=== PATIENT | female | born 1945 | race Hispanic/Latino ===

== ENCOUNTER 2016-07-21 09:49 | Emergency (ER) | payer OTHER ==
[~2016-07-21] VITALS: Ht 162.6 cm; Wt 72.6 kg
[2016-07-21] MEDS ORDERED: NOVOLOG MI100 UNIT/2 SC (12:06)
--- NOTE | 2016-07-21 12:50 | ED UPPER/LOWER EXTREMITY COMPL ---
History of Present Illness General Chief Complaint: General Adult Stated Complaint: PINS AND NEEDLES IN UPPER R BACK AREA Source: patient, family Exam Limitations: no limitations Allergies Coded Allergies: penicillin G (Severe, ANAPHYLAXIS 07/21/16) Uncoded Allergies: EGGS (UNKNOWN 07/21/16) Triage Note: 71 YO FEMALE TO TRIAGE C/O "PINS AND NEEDLES" TO UPPER R SIDE OF BACK AND R ARM. STATES WHEN SHE STRETCHES OR MOVES HER ARM THE FEELING GOES AWAY. DENIES CHEST PAIN. STATES ABOUT 1 YEAR AGO SHE LIFTED A TABLE AND INJURED HER BACK/ARM AND HAD THE SAME FEELING, DENIES RECENT INJURY. Triage Nurses Notes Reviewed? yes HPI: Ms Aguirre is a 71 year old female with past medical history of diabetes who presented to the emergency department on 07/21/2016 complaining of right shoulder pain and discomfort. Patient states that her symptoms may have began approximately 12 months ago as she was moving a glass table with her . Approximately 4 weeks ago she attempted to move some furniture at her home and has since been feeling discomfort in the right scapular region. Patient denies any loss of sensation. She denies any motor weakness. She denies any range of motion abnormalities. Spoke with her son in the waiting room, he states this injust has been going on for a while. (BROWN CHUA,[facility]) Vital Signs & Intake/Output Vital Signs & Intake/Output Vital Signs Date Time Temp Pulse Resp B/P B/P Pulse O2 O2 Flow FiO2 Mean Ox Delivery Rate 07/21 1401 98.6 76 18 125/85 96 07/21 1209 98.8 73 18 139/69 99 07/21 0959 98.6 80 18 136/84 98 Room Air ED Intake and Output 07/22 0000 07/21 1200 Intake Total Output Total Balance Patient 72.575 kg Weight Weight Reported by Patient Measurement Method Reconcile Medications Cyclobenzaprine HCl 5 MG TABLET 1 TAB PO TIDPRN Muscle Pain/Spasm Insulin Aspart Protam & Aspart (Novolog Mix 70-30 Flexpen Syrn) 100 UNIT/ML (70- 30) INSULN.PEN 10 U SC BID DIABETES (Reported) (GULSHAN CHUA,DAVID Mclain) Past History Travel History Traveled to [place] past 21 day No Medical History Any Pertinent Medical History? none Neurological: NONE EENT: NONE Cardiovascular: NONE Respiratory: NONE Gastrointestinal: NONE Hepatic: NONE Renal: NONE Musculoskeletal: NONE Psychiatric: NONE Endocrine: diabetes Blood Disorders: NONE Cancer(s): NONE CUSTOMER ASSISTANT/Reproductive: NONE Surgical History Surgical History: none Psychosocial History What is your primary language Maltese Tobacco Use: Never used Family History Hx Contributory? Yes (YUSEF DASILVA MD) Review of Systems Review of Systems Constitutional: Denies: chills, diaphoresis, fever, malaise, weakness. Cardiovascular: Denies: chest pain, edema, orthopena, palpitations. Gastrointestinal/Abdominal: Denies: abdominal pain, constipation, diarrhea, eructation, flatus. Genitourinary: Denies: discharge, dysuria, frequency, hematuria, hesitation. Musculoskeletal: Reports: joint pain, muscle pain, muscle stiffness. Denies: back pain, gout, joint swelling. Skin: Denies: change in skin color, change in hair/nails, dryness, erythema, jaundice, lesions. Neurological/Psychological: Denies: cognitive dysfunction, confusion, depressed, dementia. (YUSEF DASILVA MD) Physical Exam Physical Exam General Appearance: well developed/nourished, no apparent distress, alert, awake Cardiovascular/Respiratory: normal breath sounds Peripheral Pulses: 4+ dorsalis pedis (R), 4+ dorsalis pedis (L) Back: normal inspection, normal range of motion Shoulder Left: normal range of motion, normal inspection Shoulder Right: normal range of motion, normal inspection Elbow Left: normal range of motion, normal inspection Elbow Right: normal range of motion, normal inspection Hand Left: normal inspection Hand Right: normal inspection Upper Extremity Reflexes: 4+: bicep (R), bicep (L), tricep (R), tricep (L). (YUSEF DASILVA MD) Progress Differential Diagnosis: arterial insufficiency, DVT, sprain Plan of Care: Orders Procedure Date/time Status Consistent Carbohydrate 3 07/21 L Active Departure Departure Disposition: HOME OR SELF CARE Condition: Stable Clinical Impression Primary Impression: Shoulder injury Referrals: MANJU CHUA,IRIS Baker (PCP/Family) Additional Instructions: Please follow-up with your primary care physician within the next 2 days. Please inform your primary care physician of this visit to the emergency department. Your primary care physician will give you a referral for physical therapy. If you experience worsening pain, loss of sensation or any movement abnormalities with your shoulder please come back to the emergency department for additional workup. We have prescribed you a muscle relaxant. Should you experience any side effects from this medication please stop taking it and inform your primary care physician. Please avoid any heavy lifting over the next 10-14 days. Departure Forms: Customer Survey General Discharge Information Prescriptions: Current Visit Scripts Cyclobenzaprine HCl 1 TAB PO TIDPRN #12 TAB (BROWN CHUA,YUSEF) Resident Co-Sign Statement Statement: ED Attending supervision documentation- [x] I saw and evaluated the patient. I have also reviewed all the pertinent lab results and diagnostic results. I agree with the findings and the plan of care as documented in the Resident's documentation. [] I have reviewed the ED Record and agree with the Resident's documentation. [] Additions or exceptions (if any) to the Resident's note and plan are summarized below: [] (GULSHAN CHUA,DAVID Mclain)
[2016-07-21] MEDS ORDERED: CYCLOBENZAPRINE5 M2 PO (13:21)
[2016-07-21 14:01] VITALS: BP 125/85
== END 2016-07-21 14:02 ==
LOC: ERH 09:49
DX: S49.91XA Unspecified injury of right shoulder and upper arm, initial encounter (principal); X58.XXXA Exposure to other specified factors, initial encounter; Y92.9 Unspecified place or not applicable; Y93.9 Activity, unspecified

== ENCOUNTER 2016-08-03 18:26 | Emergency (ER) | payer OTHER ==
[~2016-08-03] VITALS: Ht 144.8 cm; Wt 72.6 kg
[~2016-08-03 18:26] MED LIST: CYCLOBENZAPRINE5 M2 PO; NOVOLOG MI100 UNIT/2 SC
--- NOTE | 2016-08-03 21:01 | ED SKIN/ALLERGY COMPLAINT ---
History of Present Illness General Chief Complaint: Skin Rash/ Abcess Stated Complaint: RASH TO RT SIDE Source: patient, family Exam Limitations: no limitations Vital Signs & Intake/Output Vital Signs & Intake/Output Vital Signs Date Time Temp Pulse Resp B/P B/P Pulse O2 O2 Flow FiO2 Mean Ox Delivery Rate 08/04 2107 162/84 08/03 1841 97.7 92 16 181/82 97 Room Air Allergies Coded Allergies: penicillin G (Severe, ANAPHYLAXIS 07/21/16) Uncoded Allergies: EGGS (UNKNOWN 07/21/16) Reconcile Medications Clotrimazole (Lotrimin AF) 1 % CREAM..G. 1 MARTHA TOP BID TINEA CORPORIS apply to affected area(s) Cyclobenzaprine HCl 5 MG TABLET 1 TAB PO TIDPRN Muscle Pain/Spasm Insulin Aspart Protam & Aspart (Novolog Mix 70-30 Flexpen Syrn) 100 UNIT/ML (70- 30) INSULN.PEN 10 U SC BID DIABETES (Reported) Triage Note: PT STATES SHE HAS A RED RASH AND ITCHING UNDER HER BREAST THAT STARTED ABOUT 2 WEEKS AGO. Triage Nurses Notes Reviewed? yes Onset: Gradual Duration: week(s): (2) Timing: recent history Severity: mild Location: UNDER RIGHT BREAST No Modifying Factors: none Associated Symptoms: rash HPI: 71 year old female with history of DM presents with red rash under her right breast for tere past 2 months. Rash is itchy but not painful. Deneis fever or chills. Patient denies history of similar symptoms. She was worried that it might be shingles. Past History Travel History Traveled to [place] past 21 day No Medical History Any Pertinent Medical History? 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 No Review of Systems Review of Systems Constitutional: Denies: chills, fever. EENTM: Reports: no symptoms. Respiratory: Denies: cough, short of breath. Cardiovascular: Denies: chest pain. GI: Reports: no symptoms. Genitourinary: Reports: no symptoms. Musculoskeletal: Reports: no symptoms. Skin: Reports: rash. Neurological/Psychological: Reports: no symptoms. Hematologic/Endocrine: Denies: bruising, bleeding, polyuria, polydipsia. Immunologic/Allergic: Denies: splenectomy. All Other Systems: Reviewed and Negative Physical Exam Physical Exam General Appearance: well developed/nourished, mild distress Head: atraumatic Eyes: Bilateral: PERRL, EOMI. Ears, Nose, Throat: normal pharynx, normal ENT inspection, hearing grossly normal Neck: normal inspection, supple Respiratory: normal breath sounds Cardiovascular: regular rate/rhythm Gastrointestinal: soft, non-tender Back: normal inspection Extremities: normal inspection, normal range of motion, no edema Neurologic/Psych: no motor/sensory deficits, awake, alert, oriented x 3, normal mood/affect Skin: intact, normal color, warm/dry Skin Problem Location: UNDER RIGHT BREAST Skin Problem Character: FUNGAL, ERYTHEMA WITH SATLLITE LESIONS Lymphatic: no anterior cervical alpesh Progress Differential Diagnosis: abscess/cellulitis, allergic reaction, contact dermatitis, CANDIDAL RASH Plan of Care: Orders Procedure Date/time Status FingerStick- Glucose 08/03 2099 Active EXAMINATION CONSISTENT WITH FUNGAL RASH. NO SYSTEMIC SYMPTOMS. FINGERSTICK IS 188. (KELLEY CHUA,LOUIE) Departure Departure Time of Disposition: 2117 Disposition: HOME OR SELF CARE Condition: Stable Clinical Impression Primary Impression: Tinea corporis Referrals: MANJU CHUA,IRIS Baker (PCP/Family) Additional Instructions: UST THE CLOTRIMAZOLE CREAM DIRECTED FOLLOW UP WITH YOUR DOCTOR IN THE OFFICE MONITOR YOUR BLOOD GLUCOSE LEVEL CAREFULLY Departure Forms: Customer Survey General Discharge Information Prescriptions: Current Visit Scripts Clotrimazole (Lotrimin AF) 1 MARTHA TOP BID #24 GM apply to affected area(s)
[2016-08-03] MEDS ORDERED: LOTRIMIN AF12 GM TOP (21:04)
[2016-08-03 21:08] VITALS: BP 162/84
== END 2016-08-03 21:24 ==
LOC: ERH 18:26
DX: B35.4 Tinea corporis (principal)